=== PATIENT | female | born 1955 | race Caucasian/White ===

== ENCOUNTER 2017-03-09 13:21 | Day surgery (SDC) | payer OTHER ==
[~2017-03-09] VITALS: Ht 179.1 cm; Wt 97.9 kg
[2017-03-09] MEDS ORDERED: LACTATED RINGERS 1,000 ML IV SCH (13:53)
[2017-03-09] MEDS ORDERED: LIDOCAINE 1%, 2ML ONE (13:59)
[2017-03-09] MEDS ORDERED: AMIT150T PO (13:59)
[2017-03-09] MEDS ORDERED: VITAMIN B PO (13:59)
[2017-03-09] MEDS ORDERED: VITAMIN B-3 PO (13:59)
[2017-03-09] MEDS ORDERED: METOPROLOL PO (13:59)
[2017-03-09] MEDS ORDERED: SIMVASTATIN PO (13:59)
[2017-03-09 14:07] VITALS: BP 146/91
[2017-03-09] MEDS ORDERED: FENTANYL PF 100 MCG/2ML ONE ×4 (14:31→16:13)
[2017-03-09] MEDS ORDERED: MIDAZOLAM 1 MG/ML, 2ML ONE ×2 (14:31→16:13)
[2017-03-09] MEDS ORDERED: BUPIVACAINE/PF 0.25% ONE ×2 (14:32)
[2017-03-09] MEDS ORDERED: SUCCINYLCHOLINE 20 MG/ML, 10ML ONE (14:32)
[2017-03-09] MEDS ORDERED: DEXAMETHASONE 4 MG/ML, 1ML ONE (14:32)
[2017-03-09] MEDS ORDERED: ONDANSETRON 2MG/ML, 2ML ONE (14:32)
[2017-03-09] MEDS ORDERED: ROCURONIUM 10 MG/ML ONE (14:32)
[2017-03-09] MEDS ORDERED: NEOSTIGMINE 1 MG/ML, 10ML ONE (14:32)
[2017-03-09] MEDS ORDERED: PROPOFOL 10 MG/ML, 20ML ONE (14:32)
[2017-03-09] MEDS ORDERED: GLYCOPYRROLATE 0.2MG/1ML, 5ML ONE (14:32)
[2017-03-09] MEDS ORDERED: CEFAZOLIN 1,000 MG ONE (14:32)
[2017-03-09] MEDS: HYDROmorphone 1 MG/ML, 1ML IV PRN ×4 (16:00→16:24)
[2017-03-09] MEDS ORDERED: PROMETHAZINE 25 MG/ML, 1ML IV PRN (16:00)
[2017-03-09] MEDS ORDERED: OXYcodone 5 MG/5 ML ORAL.SOL UDC PO PRN (16:00)
[2017-03-09] MEDS ORDERED: ONDANSETRON 2MG/ML, 2ML IVPush PRN (16:00)
[2017-03-09] MEDS ORDERED: ACETAMINOPHEN 650 MG/20.3 ML UDC ONE (16:00)
[2017-03-09] MEDS ORDERED: ACETAMINOPHEN 325 MG TABLET PO PRN (16:00)
[2017-03-09] MEDS ORDERED: HYDROcodone/APAP 7.5-325MG/15ML UDC PO PRN (16:00)
[2017-03-09] MEDS ORDERED: HYDROmorphone 1 MG/ML, 1ML ONE ×2 (16:01→16:13)
[2017-03-09] MEDS ORDERED: OXYcodone 5 MG/5 ML ORAL.SOL UDC ONE (16:01)
[2017-03-09] MEDS: FENTANYL PF 100 MCG/2ML IV PRN ×4 (16:01→16:25)
[2017-03-09] MEDS: LABETALOL 5MG/ML, 20ML IV PRN ×3 (16:01→16:26)
[2017-03-09] MEDS: MIDAZOLAM 1 MG/ML, 2ML IV PRN ×2 (16:06→16:28)
[2017-03-09] MEDS ORDERED: LABETALOL 5MG/ML, 20ML ONE (16:13)
[2017-03-09] MEDS ORDERED: hydrALAzine 20 MG/ML, 1ML ONE (17:15)
[2017-03-09] MEDS ORDERED: LABETALOL 5MG/ML, 20ML IV PRN (18:00)
[2017-03-09] MEDS ORDERED: hydrALAzine 20 MG/ML, 1ML IV PRN (18:00)
[2017-03-09 18:31] VITALS: BP 140/71
[2017-03-09 19:28] VITALS: BP 146/83
== END 2017-03-09 21:00 | disposition home or self-care (01) ==
LOC: OR 13:21 → 4NOR 18:30 → OR 21:00
PROVIDERS: ATTEND Orthopaedic Surgery
DX: S93.115A Dislocation of interphalangeal joint of left lesser toe(s), initial encounter (principal); I10 Essential (primary) hypertension; F17.200 Nicotine dependence, unspecified, uncomplicated; I25.2 Old myocardial infarction; I25.10 Atherosclerotic heart disease of native coronary artery without angina pectoris; X58.XXXA Exposure to other specified factors, initial encounter; Y93.89 Activity, other specified; Y92.89 Other specified places as the place of occurrence of the external cause; Y99.8 Other external cause status; Z88.0 Allergy status to penicillin; Z91.041 Radiographic dye allergy status; Z90.710 Acquired absence of both cervix and uterus; Z98.890 Other specified postprocedural states; Z87.39 Personal history of other diseases of the musculoskeletal system and connective tissue; Z85.3 Personal history of malignant neoplasm of breast; Z85.43 Personal history of malignant neoplasm of ovary
CPT/HCPCS: 28675; 73660; 76000; 93005; J0330; J0690; J1100; J1170; J2250; J2405; J2704; J2710; J3010; J3490; J7120